=== PATIENT | female | born 1990 | race Caucasian/White ===

== ENCOUNTER 2019-08-05 11:29 | Emergency (ER) | payer SELFPAY ==
[~2019-08-05] VITALS: Ht 162.5 cm; Wt 53.2 kg
--- NOTE | 2019-08-05 12:21 | ED Cough/URI ---
General Chief Complaint: Cough/Cold/Flu Symptoms Stated Complaint: EAR,NECK,HEAD PAIN Source: patient Exam Limitations: no limitations History of Present Illness Date Seen by Provider: Aug 05, 2019 Time Seen by Provider: 12:05 Initial Comments 28-year-old female presents to the emergency room with a history of headache neck pain left ear pain for the past 2 days. She also has sinus pressure. Patient is being treated for multiple dental caries and open lesions in the mouth with clindamycin most likely 300 mg 3 times a day. Patient reports that she has an allergy to azithromycin which causes her to panic but had no other signs of a IgE mediated event. He states that she is in between dentists because of coverage. She has multiple lesions in her mouth consistent with open dental caries. Patient states that she has been taking Tylenol and ibuprofen and the clindamycin. Patient smokes about 3-4 cigarettes per day she does not drink alcohol is not using any illicit drugs her last menstrual period 1.5 months ago she states that she is but she is not having any intercourse. Primary care physician is Dr. Michaels and her pharmacy is [facility]. Patient has given informed consent for diagnostic and therapeutic services. Nasal swab for influenza A and B and rapid strep has been ordered. Timing/Duration: yesterday Severity/Quality: mild, dry cough Prior Episodes/Possible Cause: occasional episodes (a little upper respiratory tract infection and long-term chronic history of infected caries) Modifying Factors: Improves With Coughing Associated Symptoms: cough, dizziness, earache, facial pain (from dental shailesh es), fever/chills, headache, nasal congestion, sore throat Allergies and Home Medications Allergies Coded Allergies: azithromycin (Verified Adverse Reaction, Mild, 08/05/19) Patient reports she developed a panic experience after using azithromycin Patient Home Medication List Home Medication List Reviewed: Yes Review of Systems Review of Systems Constitutional: chills, fever, malaise, weakness, other (also has advanced dental caries) EENTM: ear pain, dental problems, mouth pain, mouth swelling (from advanced dental caries), nose congestion Respiratory: cough, other (patient continues to smoke 4 cigarettes per day) Cardiovascular: no symptoms reported Gastrointestinal: nausea Genitourinary: no symptoms reported (but has a history of oligomenorrhea) : No Musculoskeletal: back pain, joint pain, muscle pain Skin: no symptoms reported Psychiatric/Neurological: Anxiety, Depressed, Headache Hematologic/Lymphatic: No Symptoms Reported Immunological/Allergic: no symptoms reported Past Pdrsbjo-Gdrkqj-Vkwczi Hx Patient Social History Alcohol Use: Denies Use Recreational Drug Use: No Smoking Status: Current Everyday Smoker Past Medical History Respiratory: Yes (chronic cough) : No Gastrointestinal: No Musculoskeletal: Yes (chronic aches and pains) Endocrine: No Are Your Blood Sugars Over 250: No HEENT: Yes (chronic dental infections) Loss of Vision: Denies Hearing Impairment: Denies Cancer: No Psychosocial: Yes Anxiety, Depression Integumentary: No Blood Disorders: No Physical Exam Vital Signs - First Documented 08/05/19 11:45 Temp 36.3 Pulse 89 Resp 16 B/P (MAP) 119/76 (90) Pulse Ox 100 O2 Delivery Room Air Capillary Refill : Less than 1 second Height: '" Weight: lbs. oz. kg; BMI Method: General Appearance: moderate distress (moderate distress secondary to perioral pain periodontal disease severe dental caries needs to have dental services. Patient wanted a ENT referral by felt that her main problem is actually dental and strongly encouraged that she follow through with dental care.), thin HEENT: TM abnormal (R), pharyngeal erythema, other (severe dental pathology) Neck: non-tender, full range of motion, supple Respiratory: crackles (she is a smoker) Cardiovascular: regular rate, rhythm, no edema, no gallop, no JVD, no murmur Gastrointestinal: normal bowel sounds, non tender Extremities: normal range of motion, non-tender, normal inspection, no pedal edema Neurologic/Psychiatric: radiographic technologist II-XII nml as tested, no motor/sensory deficits, alert, normal mood/affect, oriented x 3 Skin: normal color, warm/dry Lymphatic: no adenopathy Progress/Results/Core Measures Suspected Sepsis Recent Fever Within 48 Hours: Yes (per patient) New/Unexplained Altered Menta: No SIRS Temperature: Pulse: Respiratory Rate: Blood Pressure / Mean: Results/Orders Lab Results Laboratory Tests Test 08/05/19 12:16 Range/Units Group A Streptococcus Screen NEGATIVE NEGATIVE Micro Results Microbiology 08/05/19 Influenza Types A,B Antigen (KISHAN) - Final, Complete My Orders Orders - BRIELLE LIVE DO Influenza A And B Antigens (08/05/19 12:13) Rapid Strep A Screen (08/05/19 12:13) Ketorolac Injection (Toradol Injection) (08/05/19 13:30) Vital Signs/I&O 08/05/19 11:45 Temp 36.3 Pulse 89 Resp 16 B/P (MAP) 119/76 (90) Pulse Ox 100 O2 Delivery Room Air Capillary Refill : Departure Impression Primary Impression: Upper respiratory infection Additional Impression: Caries involving multiple surfaces of tooth Disposition: HOME, SELF-CARE (patient must have dental services for severe dental pathology) Condition: Stable Departure-Patient Inst. Decision time for Depature: 13:24 Referrals: [facility] (PCP) Primary Care Physician STARR POWELL (Family) Primary Care Physician Patient Instructions: Dental Pain Add. Discharge Instructions: Patient has severe periodontal and open caries in the mouth. She must have dental extractions. The swelling in her mouth is secondary to the chronic dental infections. All discharge instructions reviewed with patient and/or family. Voiced understanding. Scripts Cephalexin (Keflex) 500 Mg Capsule 500 MG PO QID for dental caries for 10 Days, #40 CAP Prov: BRIELLE LIVE DO 08/05/19 BRIELLE LIVE DO Aug 05, 2019 12:21
[2019-08-05] MEDS ORDERED: CEPH-507 PO (13:27)
[2019-08-05] MEDS ORDERED: KETOROLAC 60 MG/2 ML VIAL IM ONE (13:30)
[2019-08-05 13:51] VITALS: BP 119/76
== END 2019-08-05 13:51 | disposition home or self-care (01) ==
LOC: ER FS 11:31
DX: J06.9 Acute upper respiratory infection, unspecified (principal); K02.9 Dental caries, unspecified; F41.9 Anxiety disorder, unspecified; F32.9 Major depressive disorder, single episode, unspecified; F17.210 Nicotine dependence, cigarettes, uncomplicated; Z88.1 Allergy status to other antibiotic agents
CPT/HCPCS: 87430; 87804; 96372

== ENCOUNTER 2021-02-03 14:18 | Emergency (ER) | payer SELFPAY ==
[~2021-02-03] VITALS: Ht 162 cm; Wt 58.0 kg
[~2021-02-03 14:18] MED LIST: CEPH-507 PO
[2021-02-03] MEDS ORDERED: FAMOTIDINE 20MG/2ML IV (PEPCID) IV STA (14:24)
[2021-02-03 14:27] VITALS: BP 108/87
--- NOTE | 2021-02-03 14:29 | ED GI ---
General Chief Complaint: Abdominal/GI Problems Stated Complaint: SOB; NAUSEA; CHEST PAIN History of Present Illness Date Seen by Provider: Feb 03, 2021 Time Seen by Provider: 14:26 Initial Comments 30-year-old female presents with nausea, epigastric/lower chest pain. She reports that started around 06/29/1930. She presented to [facility] who then sent her down here for further evaluation. She reports that she ate about an hour and a half prior to that. She denies any diaphoresis. The pain does not radiate. She felt like she had a "bubble in the upper part of her stomach" Allergies and Home Medications Allergies Coded Allergies: azithromycin (Verified Adverse Reaction, Mild, 08/05/19) Patient reports she developed a panic experience after using azithromycin Home Medications Cephalexin 500 Mg Capsule, 500 MG PO QID Prescribed by: BRIELLE LIVE on 08/05/19 7257 Patient Home Medication List Home Medication List Reviewed: Yes Review of Systems Review of Systems Constitutional: No chills, No fever Respiratory: Denies Cough, Denies Wheezing Cardiovascular: See HPI Gastrointestinal: See HPI; Denies Diarrhea; Nausea; Denies Vomiting; Other ("Bloating") Genitourinary: No Symptoms Reported Musculoskeletal: no symptoms reported Skin: no symptoms reported Psychiatric/Neurological: No Symptoms Reported Endocrine: No Symptoms Reported Hematologic/Lymphatic: No Symptoms Reported Past Kfxtwps-Nrrnlx-Qokjor Hx Patient Social History Tobacco Use?: No Substance use?: No Alcohol Use?: No Pt feels they are or have been: No Seasonal Allergies Seasonal Allergies: No Past Medical History Surgeries: Yes (D & C) Respiratory: Yes (chronic cough) Cardiac: No Neurological: No Genitourinary: No Gastrointestinal: No Musculoskeletal: Yes (chronic aches and pains) Endocrine: No HEENT: Yes (chronic dental infections) Loss of Vision: Denies Hearing Impairment: Denies Cancer: No Psychosocial: Yes Anxiety, Depression Integumentary: No Blood Disorders: No Physical Exam Vital Signs Vital Signs - First Documented 02/03/21 14:27 Temp 36.2 Pulse 61 Resp 18 B/P (MAP) 108/87 (94) Pulse Ox 99 Capillary Refill : Height/Weight/BMI Height: '" Weight: lbs. oz. kg; 20.00 BMI Method: General Appearance: no apparent distress HEENT: PERRL/EOMI, pharynx normal Neck: full range of motion, supple Respiratory: lungs clear, normal breath sounds Cardiovascular: normal peripheral pulses, regular rate, rhythm, no edema Gastrointestinal: soft, tenderness (Epigastric) Extremities: normal range of motion, non-tender Neurologic/Psychiatric: no motor/sensory deficits, alert, normal mood/affect, oriented x 3 Skin: normal color, warm/dry Progress/Results/Core Measures Results/Orders Lab Results Laboratory Tests Test 02/03/21 14:29 Range/Units White Blood Count 6.8 4.3-11.0 10^3/uL Red Blood Count 4.66 4.35-5.85 10^6/uL Hemoglobin 14.8 11.5-16.0 G/DL Hematocrit 43 35-52 % Mean Corpuscular Volume 93 80-99 FL Mean Corpuscular Hemoglobin 32 25-34 PG Mean Corpuscular Hemoglobin Concent 34 32-36 G/DL Red Cell Distribution Width 11.9 10.0-14.5 % Platelet Count 229 130-400 10^3/uL Mean Platelet Volume 11.3 H 7.4-10.4 FL Immature Granulocyte % (Auto) 0 % Neutrophils (%) (Auto) 66 42-75 % Lymphocytes (%) (Auto) 23 12-44 % Monocytes (%) (Auto) 7 0-12 % Eosinophils (%) (Auto) 4 0-10 % Basophils (%) (Auto) 1 0-10 % Neutrophils # (Auto) 4.5 1.8-7.8 X 10^3 Lymphocytes # (Auto) 1.6 1.0-4.0 X 10^3 Monocytes # (Auto) 0.5 0.0-1.0 X 10^3 Eosinophils # (Auto) 0.3 0.0-0.3 10^3/uL Basophils # (Auto) 0.1 0.0-0.1 10^3/uL Immature Granulocyte # (Auto) 0.0 0.0-0.1 10^3/uL Sodium Level 140 135-145 MMOL/L Potassium Level 3.8 3.6-5.0 MMOL/L Chloride Level 102 98-107 MMOL/L Carbon Dioxide Level 26 21-32 MMOL/L Anion Gap 12 5-14 MMOL/L Blood Urea Nitrogen 16 7-18 MG/DL Creatinine 0.91 0.60-1.30 MG/DL Estimat Glomerular Filtration Rate > 60 BUN/Creatinine Ratio 18 Glucose Level 100 70-105 MG/DL Calcium Level 10.0 8.5-10.1 MG/DL Corrected Calcium 8.5-10.1 MG/DL Total Bilirubin 0.3 0.1-1.0 MG/DL Aspartate Amino Transf (AST/SGOT) 18 5-34 U/L Alanine Aminotransferase (ALT/SGPT) 13 0-55 U/L Alkaline Phosphatase 70 40-136 U/L Troponin I < 0.30 <0.30 NG/ML C-Reactive Protein < 0.30 <0.50 MG/DL Total Protein 7.2 6.4-8.2 GM/DL Albumin 4.6 H 3.2-4.5 GM/DL Lipase 34 8-78 U/L My Orders Orders - KENDRICK,DANTE L DO Lipase (02/03/21 14:24) Crp Fs (02/03/21 14:24) Troponin I Fs (02/03/21 14:24) Cbc With Automated Diff (02/03/21 14:24) Comprehensive Metabolic Panel (02/03/21 14:24) Acute Abd Series (02/03/21 14:24) Ed Iv/Invasive Line Start (02/03/21 14:24) Ekg Tracing (02/03/21 14:24) Famotidine Injection (Pepcid Injection) (02/03/21 14:24) Lidocaine 2% Viscous 15 Ml (Xylocaine Vi (02/03/21 15:15) Antacid Suspension (Mylanta Suspension (02/03/21 15:15) Medications Given in ED Current Medications Medications Dose Ordered Sig/Giovanny Route Start Time Stop Time Status Last Admin Dose Admin Al Hydrox/Mg Hydrox/Simethicone 30 ml ONCE ONCE PO 02/03/21 15:15 02/03/21 15:16 DC 02/03/21 15:17 30 ML Lidocaine HCl 15 ml ONCE ONCE PO 02/03/21 15:15 02/03/21 15:16 DC 02/03/21 15:17 15 ML Vital Signs/I&O 02/03/21 14:27 Temp 36.2 Pulse 61 Resp 18 B/P (MAP) 108/87 (94) Pulse Ox 99 Progress Progress Note : Progress Note Patient symptoms improved with Pepcid. She is given a GI cocktail to help relieve the symptoms some more. Patient has known sinus arrhythmia with bigeminy and PVCs. Patient has been seen multiple times since 2011 and was first diagnosed. Patient was recommended to be on either verapamil or pacemaker but she is declined up to this point. I discussed with her the need to follow-u p with a admitting office escort for reevaluation and to consider starting treatment. Patient stable discharged home Departure Impression Primary Impression: GERD (gastroesophageal reflux disease) Qualified Codes: K21.9 - Gastro-esophageal reflux disease without esophagitis Additional Impression: Supraventricular bigeminy Disposition: HOME, SELF-CARE Condition: Stable Departure-Patient Inst. Referrals: [facility] [place] (PCP) Primary Care Physician STARR POWELL (Family) Primary Care Physician Patient Instructions: Acid Reflux, Adult and Adolescent ED Add. Discharge Instructions: Pepcid or similar antacid daily as directed on package Follow-up with your primary care provider and cardiology for further consultation and reevaluation of your known cardiac arrhythmia All discharge instructions reviewed with patient and/or family. Voiced understanding. DANTE KENDRICK DO Feb 03, 2021 14:29
[2021-02-03 14:38] LABS: HEMATOCRIT 43 % (35-52); HEMOGLOBIN 14.8 G/DL (11.5-16.0); MEAN CORPUSCULAR HEMOGLOBIN 32 PG (25-34); MEAN CORPUSCULAR HGB CONC 34 G/DL (32-36); MEAN CORPUSCULAR VOLUME 93 FL (80-99); MEAN PLATELET VOLUME 11.3 FL (7.4-10.4); PLATELET COUNT 229 10^3/uL (130-400); WHITE BLOOD COUNT 6.8 10^3/uL (4.3-11.0)
[2021-02-03 14:39] LABS: BASOPHILS # (AUTO) 0.1 10^3/uL (0.0-0.1); BASOPHILS % (AUTO) 1 % (0-10); EOSINOPHILS # (AUTO) 0.3 10^3/uL (0.0-0.3); EOSINOPHILS % (AUTO) 4 % (0-10); LYMPHOCYTES # (AUTO) 1.6 X 10^3 (1.0-4.0); LYMPHOCYTES % (AUTO) 23 % (12-44); MONOCYTES # (AUTO) 0.5 X 10^3 (0.0-1.0); MONOCYTES % (AUTO) 7 % (0-12); NEUTROPHILS # (AUTO) 4.5 X 10^3 (1.8-7.8); NEUTROPHILS % (AUTO) 66 % (42-75)
--- NOTE | 2021-02-03 14:50 | Diagnostic Imaging Report ---
INDICATION: Epigastric pain FINDINGS: The lungs are clear. No failure, effusion or pneumothorax. The bowel gas pattern normal. No abnormal fecal loading. No suspicious calcifications. IMPRESSION: This is an unremarkable acute abdominal series. Dictated by: Dictated on workstation # [id number]
[2021-02-03 15:04] LABS: ALANINE AMINOTRANSFERASE 13 U/L (0-55); ALKALINE PHOSPHATASE 70 U/L (40-136); BILIRUBIN,TOTAL 0.3 MG/DL (0.1-1.0); BUN/CREATININE RATIO 18; CARBON DIOXIDE 26 MMOL/L (21-32); CHLORIDE 102 MMOL/L (98-107); CREATININE SERUM 0.91 MG/DL (0.60-1.30); GFR ESTIMATED > 60; GLUCOSE 100 MG/DL (70-105); POTASSIUM 3.8 MMOL/L (3.6-5.0); SODIUM 140 MMOL/L (135-145); TOTAL PROTEIN 7.2 GM/DL (6.4-8.2)
[2021-02-03 15:05] LABS: ALBUMIN 4.6 GM/DL (3.2-4.5); LIPASE 34 U/L (8-78)
[2021-02-03] MEDS ORDERED: ANTACID SUSP 30 ML UDC (MYLANTA) PO ONE (15:15)
[2021-02-03] MEDS ORDERED: LIDOCAINE 2% VISCOUS 15 ML UDC PO ONE (15:15)
== END 2021-02-03 15:25 | disposition home or self-care (01) ==
LOC: EDUNIT# 14:18 → ER FS 14:21
DX: K21.9 Gastro-esophageal reflux disease without esophagitis (principal); I49.8 Other specified cardiac arrhythmias; I49.3 Ventricular premature depolarization
CPT/HCPCS: 36415; 74022; 80053; 83690; 84484; 85025; 86141; 93005

== ENCOUNTER 2021-10-02 09:26 | Emergency (ER) | payer MEDICAID, OTHER ==
[~2021-10-02] VITALS: Ht 162.5 cm; Wt 52.9 kg
[2021-10-02] MEDS ORDERED: KETOROLAC 30 MG/ML VIAL IVP STA (09:44)
[2021-10-02] MEDS ORDERED: ONDANSETRON 4 MG/2 ML (SDV) Z0FRAN IVP STA (09:44)
[2021-10-02] MEDS ORDERED: NS IV 1000 ML 1,000 ML IV STA (09:44)
[2021-10-02] MEDS ORDERED: cefTRIAXone 1 GM PRE-MIX 50 ML IV STA (09:44)
[2021-10-02] MEDS ORDERED: morphine INJ 10 MG/ML 1ML (SYR OR VIAL) IVP STA (09:44)
--- NOTE | 2021-10-02 09:49 | ED EENT ---
History of Present Illness General Chief Complaint: Dental Problems/Pain Stated Complaint: JAW/EAR PAIN Source: patient History of Present Illness Date Seen by Provider: Oct 02, 2021 Time Seen by Provider: 09:28 Initial Comments 30 yo female presenting with complaints of pain to several teeth and some swelling to left side of face. She was trying to get established with [facility] out of [facility]. She was started on Augmentin antibiotic yesterday afternoon. She had doubled up on the dose of that based on advice from a prior ER visit years ago to [place]. She had increased pain overnight and was taking acetaminophen and ibuprofen. She felt like her heart was racing and was having hot flashes and cold chills. She denies vomiting but states she has had some nausea. She denies any diarrhea, pain with urination, cough, documented fever. She does have increased pressure in her face especially on the left side with bending over or laying down. She has several teeth that have decayed down to the root or are broken off. She has some mild swelling around the gums on the left upper part of her face. Timing/Duration: gradual (over the last few days) Severity: severe Location: facial, dental Prearrival Treatment: over the counter meds, prescription meds (antibiotics) Modifying Factors: Worse With Activity, Worse With Lying Down Associated Symptoms: No change in hearing, No cough, No drooling, No ear drainage; facial pain/swelling, fever (subjective), malaise; No nasal congestion/drainage, No poor fluid intake, No poor solids intake, No sinus infection, No sore throat; tooth pain Allergies and Home Medications Allergies Coded Allergies: azithromycin (Verified Adverse Reaction, Mild, 08/05/19) Patient reports she developed a panic experience after using azithromycin Patient Home Medication List Home Medication List Reviewed: Yes Hydrocodone/Acetaminophen (Hydrocodone-Acetamin 5-325 mg) 1 Each Tablet, 1 TAB PO Q4H PRN for PAIN-SEVERE (8-10) Prescribed by: WILFREDO HUBBARD on 10/02/21 1047 Discontinued Medications Cephalexin (Keflex) 500 Mg Capsule, 500 MG PO QID Prescribed by: BRIELLE LIVE on 08/05/19 1327 Review of Systems Review of Systems Constitutional: chills, fever (subjective) Eyes: No Symptoms Reported Ears: No Symptoms Reported Nose: no symptoms reported Mouth: pain, swelling; denies bloody discharge, denies clear discharge, denies purulent discharge Throat: no symptoms reported Respiratory: no symptoms reported Cardiovascular: see HPI, palpitations Gastrointestinal: nausea; No vomiting Musculoskeletal: no symptoms reported Skin: no symptoms reported Neurological: Anxiety Past Ewrwufp-Rfnvqn-Vycrba Hx Patient Social History Tobacco Use?: No Smoking Status: Unknown if Ever Smoked Use of E-Cig and/or Vaping dev: Yes E-Cig or Vaping type used: Other Use of E-Cig and/or Vaping Jose: User Current Status Unk, Current Someday User Substance use?: No Alcohol Use?: No Pt feels they are or have been: No Seasonal Allergies Seasonal Allergies: No Past Medical History Surgery/Hospitalization HX: Dental caries Surgeries: Yes (D & C) Respiratory: Yes (chronic cough) Cardiac: No Neurological: No Genitourinary: No Gastrointestinal: No Musculoskeletal: Yes (chronic aches and pains) Endocrine: No HEENT: Yes (chronic dental infections) Loss of Vision: Denies Hearing Impairment: Denies Cancer: No Psychosocial: Yes Anxiety, Depression Integumentary: No Blood Disorders: No Physical Exam Vital Signs Vital Signs - First Documented 10/02/21 09:32 Temp 36.4 Pulse 125 Resp 18 B/P (MAP) 100/78 (85) Pulse Ox 98 O2 Delivery Room Air Height, Weight, BMI Height: '" Weight: lbs. oz. kg; 22.00 BMI Method: General Appearance: mild distress, thin Eyes: bilateral eye normal inspection, bilateral eye PERRL, bilateral eye EOMI Nose: normal inspection Mouth/Throat: pharynx normal, dental tenderness, maxillary swelling (along gums around missing teeth/decayed teeth), other (widespread dental decay with multiple teeth decayed down to the root and several broken or missing teeth) Neck: non-tender, full range of motion, supple Cardiovascular: normal peripheral pulses, no murmur, tachycardia Respiratory: chest non-tender, lungs clear, normal breath sounds, no respiratory distress, no accessory muscle use Gastrointestinal: normal bowel sounds, soft, no pulsatile mass Neurologic/Psychiatric: alert, oriented x 3, other (anxious) Skin: normal color, warm/dry Progress/Results/Core Measures Results/Orders Lab Results Laboratory Tests Test 10/02/21 09:57 Range/Units White Blood Count 11.5 H 4.3-11.0 10^3/uL Red Blood Count 4.64 3.80-5.11 10^6/uL Hemoglobin 14.6 11.5-16.0 g/dL Hematocrit 42 35-52 % Mean Corpuscular Volume 90 80-99 fL Mean Corpuscular Hemoglobin 32 25-34 pg Mean Corpuscular Hemoglobin Concent 35 32-36 g/dL Red Cell Distribution Width 11.9 10.0-14.5 % Platelet Count 248 130-400 10^3/uL Mean Platelet Volume 11.3 9.0-12.2 fL Immature Granulocyte % (Auto) 0 % Neutrophils (%) (Auto) 81 H 42-75 % Lymphocytes (%) (Auto) 10 L 12-44 % Monocytes (%) (Auto) 8 0-12 % Eosinophils (%) (Auto) 1 0-10 % Basophils (%) (Auto) 1 0-10 % Neutrophils # (Auto) 9.3 H 1.8-7.8 10^3/uL Lymphocytes # (Auto) 1.1 1.0-4.0 10^3/uL Monocytes # (Auto) 0.9 0.0-1.0 10^3/uL Eosinophils # (Auto) 0.1 0.0-0.3 10^3/uL Basophils # (Auto) 0.1 0.0-0.1 10^3/uL Immature Granulocyte # (Auto) 0.0 0.0-0.1 10^3/uL Sodium Level 136 135-145 MMOL/L Potassium Level 3.9 3.6-5.0 MMOL/L Chloride Level 101 98-107 MMOL/L Carbon Dioxide Level 23 21-32 MMOL/L Anion Gap 12 5-14 MMOL/L Blood Urea Nitrogen 15 7-18 MG/DL Creatinine 0.73 0.60-1.30 MG/DL Estimat Glomerular Filtration Rate 114 BUN/Creatinine Ratio 21 Glucose Level 147 H 70-105 MG/DL Calcium Level 9.6 8.5-10.1 MG/DL Corrected Calcium 8.5-10.1 MG/DL Total Bilirubin 0.7 0.1-1.0 MG/DL Aspartate Amino Transf (AST/SGOT) 14 5-34 U/L Alanine Aminotransferase (ALT/SGPT) 11 0-55 U/L Alkaline Phosphatase 53 40-136 U/L Total Protein 7.3 6.4-8.2 GM/DL Albumin 4.6 H 3.2-4.5 GM/DL My Orders Orders - WILFREDO HUBBARD MD Comprehensive Metabolic Panel (10/02/21 09:44) Ed Iv/Invasive Line Start (10/02/21 09:44) Cbc With Automated Diff (10/02/21 09:44) Ns Iv 1000 Ml (Sodium Chloride 0.9%) (10/02/21 09:44) Ceftriaxone 1 Gm Pre-Mix (Rocephin 1 Gm (10/02/21 09:44) Ondansetron Injection (Zofran Injectio (10/02/21 09:44) Ketorolac Injection (Toradol Injection) (10/02/21 09:44) Morphine Injection (Morphine Injection (10/02/21 09:44) Vital Signs/I&O 10/02/21 10/02/21 10/02/21 10/02/21 09:32 09:56 09:57 10:50 Temp 36.4 36.4 36.4 36.4 Pulse 125 58 Resp 18 18 B/P (MAP) 100/78 (85) 110/68 Pulse Ox 98 100 O2 Delivery Room Air Room Air Progress Progress Note #1: Progress Note With dental decay and swelling with tachycardia will establish IV and give IVF 1 L NS for hydration, Rocephin 1 gm IV to boost antibiotic of Augmentin she started yesterday afternoon. For pain and swelling will give Toradol 30 mg IV, Morphine 2 mg IV, for nausea Zofran 4 mg IV. Her mild tachycardia is likely partly due to infection but mostly due to anxiety as it did settle down a lot as I was speaking with her and doing my exam. Progress Note #2: Progress Note Labs show WBC count at upper limit of normal. Chemistry without acute signif icant abnormality. Pt feeling better after treatment in ED. Continue on Augmentin and Ibuprofen and add a few Hydrocodone for severe pain. Counseled on follow up and return precautions Departure Impression Primary Impression: Pain due to dental caries Additional Impression: Swelling of gums Disposition: HOME, SELF-CARE Condition: Improved Departure-Patient Inst. Decision time for Depature: 10:45 Referrals: [facility] APRN (PCP) Primary Care Physician [facility] (Family) Primary Care Physician Patient Instructions: Tooth Decay ED, Dental Pain ED Add. Discharge Instructions: Follow up with Dental clinic in [place] as planned. Continue with antibiotics you started yesterday. For severe pain you could take the Hydrocodone/Acetaminophen. Continue with Ibuprofen 800 mg every 8 hours as needed for pain/inflammation/swelling. Check back with clinic for continued concerns. All discharge instructions reviewed with patient and/or family. Voiced understanding. Scripts Hydrocodone/Acetaminophen (Hydrocodone-Acetamin 5-325 mg) 1 Each Tablet 1 TAB PO Q4H PRN for PAIN-SEVERE (8-10) for 5 Days, #30 TAB 0 Refills Prov: WILFREDO HUBBARD MD 10/02/21 WILFREDO HUBBARD MD Oct 02, 2021 09:49
[2021-10-02 10:02] LABS: BASOPHILS # (AUTO) 0.1 10^3/uL (0.0-0.1); BASOPHILS % (AUTO) 1 % (0-10); EOSINOPHILS # (AUTO) 0.1 10^3/uL (0.0-0.3); EOSINOPHILS % (AUTO) 1 % (0-10); HEMATOCRIT 42 % (35-52); HEMOGLOBIN 14.6 g/dL (11.5-16.0); LYMPHOCYTES # (AUTO) 1.1 10^3/uL (1.0-4.0); LYMPHOCYTES % (AUTO) 10 % (12-44); MEAN CORPUSCULAR HEMOGLOBIN 32 pg (25-34); MEAN CORPUSCULAR HGB CONC 35 g/dL (32-36); MEAN CORPUSCULAR VOLUME 90 fL (80-99); MEAN PLATELET VOLUME 11.3 fL (9.0-12.2); MONOCYTES # (AUTO) 0.9 10^3/uL (0.0-1.0); MONOCYTES % (AUTO) 8 % (0-12); NEUTROPHILS # (AUTO) 9.3 10^3/uL (1.8-7.8); NEUTROPHILS % (AUTO) 81 % (42-75); PLATELET COUNT 248 10^3/uL (130-400); WHITE BLOOD COUNT 11.5 10^3/uL (4.3-11.0)
[2021-10-02 10:39] LABS: BUN/CREATININE RATIO 21; CARBON DIOXIDE 23 MMOL/L (21-32); CHLORIDE 101 MMOL/L (98-107); CREATININE SERUM 0.73 MG/DL (0.60-1.30); GFR ESTIMATED 114; POTASSIUM 3.9 MMOL/L (3.6-5.0); SODIUM 136 MMOL/L (135-145)
[2021-10-02 10:40] LABS: ALANINE AMINOTRANSFERASE 11 U/L (0-55); ALBUMIN 4.6 GM/DL (3.2-4.5); ALKALINE PHOSPHATASE 53 U/L (40-136); BILIRUBIN,TOTAL 0.7 MG/DL (0.1-1.0); CALCIUM 9.6 MG/DL (8.5-10.1); GLUCOSE 147 MG/DL (70-105); TOTAL PROTEIN 7.3 GM/DL (6.4-8.2)
[2021-10-02] MEDS ORDERED: ACHD5005 PO (10:46)
[2021-10-02 10:50] VITALS: BP 110/68
== END 2021-10-02 10:50 | disposition home or self-care (01) ==
LOC: EDUNIT# 09:26 → ER FS 09:27
DX: K02.9 Dental caries, unspecified (principal); K06.8 Other specified disorders of gingiva and edentulous alveolar ridge; F17.290 Nicotine dependence, other tobacco product, uncomplicated
CPT/HCPCS: 36415; 80053; 85025

== ENCOUNTER 2022-05-29 13:22 | Emergency (ER) | payer MEDICAID ==
[~2022-05-29] VITALS: Ht 162.6 cm; Wt 62.5 kg
[~2022-05-29 13:22] MED LIST changes: +ACHD5005 PO
--- NOTE | 2022-05-29 13:29 | ED Upper Extremity ---
General Chief Complaint: Upper Extremity Stated Complaint: SWELLING LT ARM History of Present Illness Date Seen by Provider: May 29, 2022 Time Seen by Provider: 13:29 Initial Comments 31-year-old female presents with swelling of her left upper arm. Patient was seen but can see you earlier today where she was getting an CT with contrast. That her IV blew and she had some infiltration of contrast dye. Patient presents just because she has had some increased swelling. She was just concerned and wanted to have it evaluated. She denies any rash, shortness of breath, or other allergic reactions. Allergies and Home Medications Allergies Coded Allergies: azithromycin (Verified Adverse Reaction, Mild, 08/05/19) Patient reports she developed a panic experience after using azithromycin Patient Home Medication List Home Medication List Reviewed: Yes Hydrocodone/Acetaminophen (Hydrocodone-Acetamin 5-325 mg) 1 Each Tablet, 1 TAB PO Q4H PRN for PAIN-SEVERE (8-10) Prescribed by: WILFREDO HUBBARD on 10/02/21 1047 Review of Systems Constitutional: no symptoms reported EENTM: no symptoms reported Respiratory: no symptoms reported Cardiovascular: no symptoms reported Gastrointestinal: no symptoms reported Genitourinary: no symptoms reported Musculoskeletal: see HPI Skin: see HPI Psychiatric/Neurological: No Symptoms Reported Past Blgqduh-Pvfpza-Fggebn Hx Seasonal Allergies Seasonal Allergies: No Past Medical History Surgery/Hospitalization HX: Dental caries Surgeries: Yes (D & C) Respiratory: Yes (chronic cough) Cardiac: No Neurological: No Genitourinary: No Gastrointestinal: No Musculoskeletal: Yes (chronic aches and pains) Endocrine: No HEENT: Yes (chronic dental infections) Loss of Vision: Denies Hearing Impairment: Denies Cancer: No Psychosocial: Yes Anxiety, Depression Integumentary: No Blood Disorders: No Physical Exam Vital Signs Capillary Refill : Height, Weight, BMI Height: '" Weight: lbs. oz. 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 Will recommend she keeps her arm at heart level and above, cold compress for 15 to 20 minutes at a time 4-5 times a day for the next 24 hours, she should follow-up with her primary care provider or return to the ER if symptoms or not improved over the next 24 hours Departure Impression Primary Impression: IV infiltration Qualified Codes: T80.1XXA - Vascular complications following infusion, transfusion and therapeutic injection, initial encounter Disposition: 01 HOME, SELF-CARE Condition: Stable Departure-Patient Inst. Referrals: ANT GONZALES APRN (PCP) Primary Care Physician [facility] (Family) Primary Care Physician Patient Instructions: IV Infiltration Add. Discharge Instructions: Keep your arm at heart level or above when able for the next 24 hours Ice for 15 to 20 minutes at a time 4-5 times daily All discharge instructions reviewed with patient and/or family. Voiced cory antunez. DANTE KENDRICK DO May 29, 2022 13:29
[2022-05-29 13:32] VITALS: BP 133/73
== END 2022-05-29 13:55 | disposition home or self-care (01) ==
LOC: EDUNIT# 13:22 → ER FS 13:23
DX: T80.89XA Other complications following infusion, transfusion and therapeutic injection, initial encounter (principal); R22.32 Localized swelling, mass and lump, left upper limb; Z28.310 Unvaccinated for COVID-19
CPT/HCPCS: 99281

== ENCOUNTER 2022-08-06 12:38 | Emergency (ER) | payer MEDICAID ==
[~2022-08-06] VITALS: Ht 162.6 cm; Wt 65.8 kg
--- NOTE | 2022-08-06 12:53 | ED Lower Extremity ---
General Chief Complaint: Lower Extremity Stated Complaint: RT LEG BRUSING/PAIN Source: patient Exam Limitations: no limitations History of Present Illness Date Seen by Provider: Aug 06, 2022 Time Seen by Provider: 12:39 Initial Comments 31-year-old female with recent diagnosis of papillary thyroid cancer coming in due to right lower extremity pain and discoloration. She had surgery early June on her thyroid and stayed in that facility for roughly 24 hours. She has had pain in her right lower extremity since then. There has not been any trauma to the extremity. Took ibuprofen this morning which did help somewhat. Pain is worse with walking, better with rest. Denies any prior history of DVT or PE. Does not take any hormones. Has not started any other treatment for the thyroid cancer as of yet. Otherwise denying any chest pain, shortness of breath, abdominal pain, nausea, vomiting, diarrhea, fever, chills, weakness, numbness, or any other concerns. Allergies and Home Medications Allergies Coded Allergies: azithromycin (Verified Adverse Reaction, Mild, 08/05/19) Patient reports she developed a panic experience after using azithromycin Patient Home Medication List Home Medication List Reviewed: Yes Hydrocodone/Acetaminophen (Hydrocodone-Acetamin 5-325 mg) 1 Each Tablet, 1 TAB PO Q4H PRN for PAIN-SEVERE (8-10) Prescribed by: WILFREDO HUBBARD on 10/02/21 1047 Review of Systems Constitutional: No fever EENTM: no symptoms reported Respiratory: no symptoms reported Cardiovascular: no symptoms reported Gastrointestinal: no symptoms reported Genitourinary: no symptoms reported Musculoskeletal: see HPI Skin: see HPI Psychiatric/Neurological: No Symptoms Reported All Other Systems Reviewed Negative Unless Noted: Yes Past Jbyvbbo-Heqdzv-Kjdnuo Hx Patient Social History Tobacco Use?: No Substance use?: No Alcohol Use?: No Seasonal Allergies Seasonal Allergies: No Past Medical History Surgery/Hospitalization HX: aortic valve dysfunction, thyroid cancer Surgeries: Yes (D & C, , thyroidectomy, tubal ligation) Section, Thyroidectomy, Tubal Ligation Respiratory: Yes (chronic cough) Cardiac: No Neurological: No Genitourinary: No Gastrointestinal: No Musculoskeletal: Yes (chronic aches and pains) Endocrine: No HEENT: Yes (chronic dental infections) Loss of Vision: Denies Hearing Impairment: Denies Cancer: No Psychosocial: Yes Anxiety, Depression Integumentary: No Blood Disorders: No Physical Exam Vital Signs Vital Signs - First Documented 08/06/22 12:40 Temp 35.8 Pulse 79 Resp 18 B/P (MAP) 140/94 (109) O2 Delivery Room Air Capillary Refill : Height, Weight, BMI Height: '" Weight: lbs. oz. kg; 23.00 BMI Method: General Appearance: WD/WN, no apparent distress HEENT: PERRL/EOMI, normal ENT inspection, pharynx normal Neck: non-tender, full range of motion, supple, normal inspection Cardiovascular: regular rate, rhythm, no edema, no murmur Respiratory: chest non-tender, lungs clear, normal breath sounds, no respira tory distress, no accessory muscle use Gastrointestinal: normal bowel sounds, non tender, soft; No distended, No guarding, No rebound Back: normal inspection, no CVA tenderness Legs: right leg other (Pain in the popliteal region to palpation, no noticeable swelling compared to the other side, no pain with squeezing of the calf, there are some faint petechiae in the anterior thigh) Neurologic/Tendon: normal sensation, normal motor functions, normal tendon functions Neurologic/Psychiatric: no motor/sensory deficits, alert, normal mood/affect Skin: normal color, warm/dry Lymphatic: no adenopathy Progress/Results/Core Measures Results/Orders Lab Results Laboratory Tests Test 08/06/22 12:51 Range/Units White Blood Count 6.2 4.3-11.0 10^3/uL Red Blood Count 4.38 3.80-5.11 10^6/uL Hemoglobin 13.5 11.5-16.0 g/dL Hematocrit 39 35-52 % Mean Corpuscular Volume 88 80-99 fL Mean Corpuscular Hemoglobin 31 25-34 pg Mean Corpuscular Hemoglobin Concent 35 32-36 g/dL Red Cell Distribution Width 12.5 10.0-14.5 % Platelet Count 243 130-400 10^3/uL Mean Platelet Volume 11.4 9.0-12.2 fL Immature Granulocyte % (Auto) 0 % Neutrophils (%) (Auto) 64 42-75 % Lymphocytes (%) (Auto) 26 12-44 % Monocytes (%) (Auto) 7 0-12 % Eosinophils (%) (Auto) 3 0-10 % Basophils (%) (Auto) 1 0-10 % Neutrophils # (Auto) 4.0 1.8-7.8 10^3/uL Lymphocytes # (Auto) 1.6 1.0-4.0 10^3/uL Monocytes # (Auto) 0.4 0.0-1.0 10^3/uL Eosinophils # (Auto) 0.2 0.0-0.3 10^3/uL Basophils # (Auto) 0.1 0.0-0.1 10^3/uL Immature Granulocyte # (Auto) 0.0 0.0-0.1 10^3/uL Neutrophils % (Manual) 46 % Lymphocytes % (Manual) 23 % Monocytes % (Manual) 9 % Band Neutrophils 22 % Platelet Estimate SL DECREASE Hypochromasia 1+ Microcytosis 1+ Macrocytosis 1+ Stomatocytes SLIGHT Prothrombin Time 12.6 12.2-14.7 SEC INR Comment 0.9 0.8-1.4 Activated Partial Thromboplast Time 30 24-35 SEC Sodium Level 139 135-145 MMOL/L Potassium Level 3.8 3.6-5.0 MMOL/L Chloride Level 103 98-107 MMOL/L Carbon Dioxide Level 24 21-32 MMOL/L Anion Gap 12 5-14 MMOL/L Blood Urea Nitrogen 10 7-18 MG/DL Creatinine 0.72 0.60-1.30 MG/DL Estimat Glomerular Filtration Rate 115 BUN/Creatinine Ratio 14 Glucose Level 91 70-105 MG/DL Calcium Level 9.5 8.5-10.1 MG/DL My Orders Orders - ELVIN RIBEIRO MD Venous Lower Ext Rt (08/06/22 12:47) Basic Metabolic Panel (08/06/22 12:49) Cbc With Automated Diff (08/06/22 12:49) Protime With Inr (08/06/22 12:49) Partial Thromboplastin Time (08/06/22 12:49) Manual Differential (08/06/22 12:51) Vital Signs/I&O 08/06/22 12:40 Temp 35.8 Pulse 79 Resp 18 B/P (MAP) 140/94 (109) O2 Delivery Room Air Progress Progress Note : Progress Note 31-year-old female presenting due to right leg pain. Apparently the pain started immediately upon waking up from her thyroid surgery. She noticed bruising shortly after. Pain has been worsening and she thought swelling has been worsening as well so she presented to the ER today. ABCs were intact and vitals were stable on presentation. Physical exam with some very faint petechiae in the anterior thigh on the right leg, no significant bruising or swelling noted. An IV was placed and basic labs were obtained, particularly her platelets were normal, and coagulation studies otherwise normal. She is never had issues with bruising or bleeding before. Right lower extremity ultrasound obtained and was negative for a DVT. In the absence of trauma, I think it is highly unlikely she has any type of fracture so we will forego getting an x-ray. I discussed with the patient if there is been any evolution in the skin changes, particularly if it looks like blistering such as shingles. She states it looks more like bruising prior to this and was deeper under the skin. I think is highly unlikely that this is an L4 dermatome shingles outbreak based on appearance and how it has changed over time. I think it is possible that there was some maneuvering during the surgery that caused some bruising to her leg and that likely nothing more significant at this time. I will have her follow-up with her PCP as an outpatient if things do not improve. Diagnostic Imaging Diagonstic Imaging: Ultrasound (RLE) Comments [facility]. [place], [place] NAME: ZULEYMA MANN [facility] REC#: [id number] PT STATUS: REG ER : 1990 PHYSICIAN: ELVIN RIBEIRO MD ADMIT DATE: 08/06/22/ER FS Signed Date of Exam:08/06/22 US VENOUS LOWER EXT RT PROCEDURE: US right lower extremity venous. TECHNIQUE: Multiple real-time grayscale images were obtained over the right lower extremity in various projections. Additional spectral analysis and color Doppler duplex images were also obtained. INDICATION: Right leg pain and swelling EXAMINATION: Grayscale and color Doppler evaluation of the deep veins of the right lower extremity were performed with waveform analysis. FINDINGS: Continuous venous flow is present. No intraluminal filling defect is identified. There is normal compressibility and response to augmentation. No abnormal perivascular fluid collection is identified. IMPRESSION: No ultrasound evidence of right lower extremity deep venous thrombosis. Dictated by: Dictated on workstation # [id number] Dict: 08/06/22 1318 Trans: 08/06/22 1319 [id number] Interpreted by: LISA CAZARES MD Electronically signed by: LISA CAZARES MD 08/06/22 1319 Departure Impression Primary Impression: Contusion of thigh, right Qualified Codes: S70.11XA - Contusion of right thigh, initial encounter Disposition: HOME, SELF-CARE Condition: Stable Departure-Patient Inst. Decision time for Depature: 13:28 Referrals: ANT GONZALES APRN (PCP) Primary Care Physician [facility] (Family) Primary Care Physician Patient Instructions: Dependent Edema (DC), Minor Contusion ED Add. Discharge Instructions: Based on the imaging, lab work, and the story, this seems were consistent with a bruise that was likely from how they were moving you around during surgery. A stronger anti-inflammatory/pain pill was sent to your pharmacy. You can take Tylenol with this, but do not mix ibuprofen with it. After you are done with this prescription, you can restart ibuprofen. He can also try things such as a heating pad or ice, whichever feels better. Follow-up with your regular doctor if things are not improving. Scripts Ketorolac Tromethamine (Ketorolac Tromethamine) 10 Mg Tablet 10 MG PO Q8H for 3 Days, #9 TAB Prov: ELVIN RIBEIRO MD 08/06/22 Work/School Note: Work Release Form Date Seen in the Emergency Department: Aug 06, 2022 Return to Work: Aug 07, 2022 Restrictions: No Restrictions ELVIN RIBEIRO MD Aug 06, 2022 12:53
[2022-08-06 13:01] LABS: BASOPHILS # (AUTO) 0.1 10^3/uL (0.0-0.1); BASOPHILS % (AUTO) 1 % (0-10); EOSINOPHILS # (AUTO) 0.2 10^3/uL (0.0-0.3); EOSINOPHILS % (AUTO) 3 % (0-10); HEMATOCRIT 39 % (35-52); HEMOGLOBIN 13.5 g/dL (11.5-16.0); LYMPHOCYTES # (AUTO) 1.6 10^3/uL (1.0-4.0); LYMPHOCYTES % (AUTO) 26 % (12-44); MEAN CORPUSCULAR HEMOGLOBIN 31 pg (25-34); MEAN CORPUSCULAR HGB CONC 35 g/dL (32-36); MEAN CORPUSCULAR VOLUME 88 fL (80-99); MEAN PLATELET VOLUME 11.4 fL (9.0-12.2); MONOCYTES # (AUTO) 0.4 10^3/uL (0.0-1.0); MONOCYTES % (AUTO) 7 % (0-12); NEUTROPHILS % (AUTO) 64 % (42-75); PLATELET COUNT 243 10^3/uL (130-400); WHITE BLOOD COUNT 6.2 10^3/uL (4.3-11.0)
[2022-08-06 13:20] LABS: INR 0.9 (0.8-1.4); PROTHROMBIN TIME PATIENT 12.6 SEC (12.2-14.7)
--- NOTE | 2022-08-06 13:20 | Diagnostic Imaging Report ---
PROCEDURE: US right lower extremity venous. TECHNIQUE: Multiple real-time grayscale images were obtained over the right lower extremity in various projections. Additional spectral analysis and color Doppler duplex images were also obtained. INDICATION: Right leg pain and swelling EXAMINATION: Grayscale and color Doppler evaluation of the deep veins of the right lower extremity were performed with waveform analysis. FINDINGS: Continuous venous flow is present. No intraluminal filling defect is identified. There is normal compressibility and response to augmentation. No abnormal perivascular fluid collection is identified. IMPRESSION: No ultrasound evidence of right lower extremity deep venous thrombosis. Dictated by: Dictated on workstation # [id number]
[2022-08-06 13:22] LABS: CALCIUM 9.5 MG/DL (8.5-10.1); CREATININE SERUM 0.72 MG/DL (0.60-1.30); POTASSIUM 3.8 MMOL/L (3.6-5.0)
[2022-08-06 13:23] LABS: NEUTROPHILS % (MANUAL) 46 %
[2022-08-06 13:24] LABS: BAND NEUTROPHILS 22 %; HYPOCHROMASIA 1+; LYMPHOCYTES % (MANUAL) 23 %; MICROCYTOSIS 1+; MONOCYTES % (MANUAL) 9 %; PLATELET ESTIMATE SL DECREASE; STOMATOCYTES SLIGHT
[2022-08-06] MEDS ORDERED: KETO10TA PO (13:30)
[2022-08-06 13:32] VITALS: BP 134/76
== END 2022-08-06 13:32 | disposition home or self-care (01) ==
LOC: EDUNIT# 12:38 → ER FS 12:39
DX: S70.11XA Contusion of right thigh, initial encounter (principal); Z28.310 Unvaccinated for COVID-19; X58.XXXA Exposure to other specified factors, initial encounter
CPT/HCPCS: 36415; 80048; 85007; 85025; 85027; 85610; 85730

== ENCOUNTER → 2022-11-19 | Outpatient (CLI) | payer MEDICAID ==
[~2022-11-19] MED LIST changes: +KETO10TA PO
--- NOTE | 2022-11-19 15:27 | Diagnostic Imaging Report ---
EXAMINATION: US Thyroid. TECHNIQUE: Multiple real-time grayscale images were obtained of the thyroid in various projections. HISTORY: PAPILLARY THYROID CA COMPARISON: None available. FINDINGS: The thyroid gland is surgically absent. There is no suspicious soft tissue lesion within the thyroidectomy bed. Within the submandibular left neck, there is a 0.9 x 1.0 x 1.3 cm hypoechoic nodule with vascular hilum, favoring a lymph node. No other focal mass or fluid collection. IMPRESSION: 1. No evidence of residual thyroid tissue. 2. A 1.3 cm soft tissue nodule within the right submandibular neck in the palpable region of concern which may represent a lymph node. Recommend continued ultrasound surveillance or optionally a fine-needle aspiration of the nodes/nodule. Dictated by: Dictated on workstation # [id number]
== END ==
LOC: RAD FS 12:34
DX: C73 Malignant neoplasm of thyroid gland (principal)
CPT/HCPCS: 76536

== ENCOUNTER → 2023-05-26 | Outpatient (CLI) | payer MEDICAID ==
--- NOTE | 2023-05-26 17:49 | Diagnostic Imaging Report ---
PROCEDURE: US Thyroid. TECHNIQUE: Multiple real-time grayscale images were obtained of the thyroid in various projections. INDICATION: Malignant neoplasm of thyroid gland. COMPARISON: 11/19/2022 FINDINGS: The thyroid gland is not visualized, surgically absent. No focal fluid collection or suspicious soft tissue abnormality within the thyroid bed. Ovoid 1.0 x 0.4 cm hypoechoic ovoid mass lesion is noted within the right submandibular location corresponding to palpable abnormality of the neck. This appears stable to slightly decreased in size from the prior examination. Additionally within the right neck, several lymph nodes are present. One lymph node within the mid right neck appears enlarged measuring 2.3 x 0.6 x 1.0 cm. The other lymph node within the superior aspect of the right neck measures 1.0 x 1.0 x 0.3 cm IMPRESSION: Enlarged lymph node within the mid right neck measuring 2.3 x 1.0 cm. Given size, fine-needle aspiration is recommended. Palpable abnormality within the right submandibular region appears slightly decreased in size from the prior examination. This likely represents a prominent lymph node. Thyroidectomy without abnormal soft tissue mass within the thyroid bed. Dictated by: Dictated on workstation # [id number]
== END ==
LOC: RAD 10:07
DX: C73 Malignant neoplasm of thyroid gland (principal)
CPT/HCPCS: 76536